=== PATIENT | female | born 1990 | race American Indian/Alaskan Native ===

== ENCOUNTER 2018-12-18 09:48 | Emergency (ER) | payer OTHER ==
[2018-12-18 09:57] VITALS: BP 122/56
[2018-12-18 10:57] LABS: HCG Qualitative,Urine Negative (Negative)
[2018-12-18 11:01] LABS: Bilirubin,Urine NEG (Negative); Blood,Urine NEG (Negative); Color,Urine Yellow (Yellow); Mucus,Urine FEW /HPF; Protein,Urine <15 mg/dL mg/dL (Negative); Urobilinogen,Urine < 2.0 mg/dL (<2.0)
[2018-12-18] MEDS ORDERED: PEPCID PO ONE (11:33)
--- NOTE | 2018-12-18 12:49 | Ultrasound Report ---
ULTRASOUND ABDOMEN LIMITED: TECHNIQUE: Transabdominal ultrasound with color Doppler interrogation. HISTORY: right upper quadrant abdominal pain. COMPARISON: none. FINDINGS: LIVER: Normal. BILIARY SYSTEM: Normal. PANCREAS: Normal. RIGHT KIDNEY: Normal. PROXIMAL AORTA: Normal. ASCITES: None. IMPRESSION: Unremarkable exam.
--- NOTE | 2018-12-18 13:02 | Emergency Department Report ---
ED Abdominal Pain HPI - General Chief Complaint: Pain General Stated Complaint: RIGHT SIDE PAIN Time Seen by Provider: 12/18/18 11:09 Source: patient Mode of arrival: Ambulatory Limitations: No Limitations - History of Present Illness Initial Comments: Patient is a 28-year-old Female who is presenting with right upper quadrant pain since last night. Patient denies any nausea vomiting diarrhea fevers or chills. Patient states is no pain with urination. Patient's last meal was fried pork chops and corn. Patient states she has never had this pain before. Patient has some increased belching and states the pain is starting to resolve now she's belching. Severity scale (0 -10): 7 - Related Data Previous Rx's Medication Instructions Recorded Last Taken Type Dicyclomine [Bentyl] 10 mg PO QID #15 capsule 12/18/18 Unknown Rx Allergies Allergy/AdvReac Type Severity Reaction Status Date / Time Penicillins Allergy Itching Verified 12/18/18 09:54 ED Review of Systems ROS: Stated complaint: RIGHT SIDE PAIN Other details as noted in HPI Comment: All other systems reviewed and negative ED Past Medical Hx - Past Medical History Previous Medical History?: No - Surgical History Past Surgical History?: Yes Additional Surgical History: x4 - Social History Smoking Status: Never Smoker Substance Use Type: None - Medications Home Medications: Home Medications Medication Instructions Recorded Confirmed Last Taken Type Dicyclomine [Bentyl] 10 mg PO QID #15 capsule 12/18/18 Unknown Rx ED Physical Exam - General Limitations: No Limitations General appearance: alert, in no apparent distress - Head Head exam: Present: atraumatic, normocephalic - Eye Eye exam: Present: normal appearance - ENT ENT exam: Present: mucous membranes moist - Neck Neck exam: Present: normal inspection - Respiratory Respiratory exam: Present: normal lung sounds bilaterally. Absent: respiratory distress - Cardiovascular Cardiovascular Exam: Present: regular rate, normal rhythm. Absent: systolic murmur, diastolic murmur, rubs, gallop - GI/Abdominal GI/Abdominal exam: Present: soft, tenderness (RUQ pain), normal bowel sounds. Absent: distended, guarding, rebound, rigid - Extremities Exam Extremities exam: Present: normal inspection - Back Exam Back exam: Present: normal inspection - Neurological Exam Neurological exam: Present: alert, oriented X3 - Psychiatric Psychiatric exam: Present: normal affect, normal mood - Skin Skin exam: Present: warm, dry, intact, normal color. Absent: rash ED Course Vital Signs 12/18/18 09:54 Temperature 97.7 F Pulse Rate 78 Respiratory 18 Rate Blood Pressure 122/56 O2 Sat by Pulse 98 Oximetry ED Medical Decision Making - Radiology Data Ultrasound of the right upper quadrant is unremarkable Critical care attestation.: If time is entered above; I have spent that time in minutes in the direct care of this critically ill patient, excluding procedure time. ED Disposition Clinical Impression: Gas pain Disposition: DC-01 TO HOME OR SELFCARE Is pt being admited?: No Does the pt Need Aspirin: No Condition: Stable Referrals: CARMELA PITT MD [Primary Care Provider] - as needed Time of Disposition: 13:02
== END 2018-12-18 13:07 | disposition home or self-care (01) ==
LOC: ED 09:48
DX: R14.1 Gas pain (principal); Z88.0 Allergy status to penicillin
CPT/HCPCS: 76705; 81001; 81025